=== PATIENT | female | born 1945 | race Hispanic/Latino ===

== ENCOUNTER 2016-11-25 09:54 | Day surgery (SDC) | payer MEDICARE, OTHER ==
[2015-11-07 12:55] VITALS: BMI 24.4
[2016-11-25 11:09] VITALS: TEMP 98; O2SAT 98
[2016-11-25] MEDS ORDERED: Propofol 10 mg/ml Inj (20 ML) ONE (12:18)
[2016-11-25] MEDS ORDERED: Lidocaine 2% Jelly (30 ml) ONE (12:42)
[2016-11-25] MEDS ORDERED: Sodium Chloride 0.9% 1,000 ML IV SCH (13:30)
[2016-11-25 13:38] VITALS: PULSE 65; RESP 16
[2016-11-25 13:58] VITALS: BP 118/65
== END 2016-11-25 15:27 | disposition home or self-care (01) ==
LOC: ENDO 09:54
PROVIDERS: ATTEND Internal Medicine Gastroenterology
DX: Z08 Encounter for follow-up examination after completed treatment for malignant neoplasm (principal); K57.30 Diverticulosis of large intestine without perforation or abscess without bleeding; Z85.048 Personal history of other malignant neoplasm of rectum, rectosigmoid junction, and anus; Z92.21 Personal history of antineoplastic chemotherapy; Z92.3 Personal history of irradiation
CPT/HCPCS: 45341; J2704; J7040 ×2

== ENCOUNTER 2017-08-07 08:41 | Day surgery (SDC) | payer MEDICARE, OTHER ==
[2015-11-07 12:55] VITALS: BMI 24.4
[2017-08-07] MEDS ORDERED: Propofol 10 mg/ml Inj (20 ML) ONE (10:14)
[2017-08-07 10:46] VITALS: O2SAT 97
[2017-08-07] MEDS ORDERED: Sodium Chloride 0.9% 1,000 ML IV SCH (11:00)
[2017-08-07 12:26] VITALS: BP 108/69; PULSE 73; RESP 16; TEMP 98
== END 2017-08-07 12:04 | disposition home or self-care (01) ==
LOC: ENDO 08:41
PROVIDERS: ATTEND Internal Medicine Gastroenterology
DX: K26.9 Duodenal ulcer, unspecified as acute or chronic, without hemorrhage or perforation (principal); K29.50 Unspecified chronic gastritis without bleeding; K44.9 Diaphragmatic hernia without obstruction or gangrene; D50.9 Iron deficiency anemia, unspecified
CPT/HCPCS: 43239; 88305; 88342; J2001; J2704; J7040 ×2

== ENCOUNTER 2018-08-18 11:05 | Outpatient (CLI) | payer MEDICARE, OTHER | END 2018-08-18 11:06 | disposition home or self-care (01) | LOC: RAD 11:05 | DX: N28.89 Other specified disorders of kidney and ureter (principal) ==

== ENCOUNTER 2018-09-20 09:16 | Outpatient (CLI) | payer MEDICARE, OTHER | END 2018-09-20 09:17 | disposition home or self-care (01) | LOC: LAB 09:16 ==